=== PATIENT | male | born 1970 | race Two or more races ===

== ENCOUNTER 2016-11-13 05:24 | Day surgery (SDC) | payer OTHER ==
[2016-11-13] MEDS ORDERED: LIDOCAINE 1% 5 ML SDV ONE (05:42)
[2016-11-13] MEDS ORDERED: ceFAZolin 2 GM/DEXTROSE 100 ML IV ONE (06:00)
[2016-11-13] MEDS ORDERED: BUPIVACAINE 0.5% 30 ML SDV ONE (07:03)
[2016-11-13] MEDS ORDERED: PROPOFOL/EMULSION 500 MG/50 ML BOTTLE IV ONE (07:30)
[2016-11-13] MEDS ORDERED: MIDAZOLAM 2 MG/2 ML VIAL ONE (07:31)
[2016-11-13] MEDS ORDERED: fentaNYL 250 MCG/5 ML INJ ONE (07:35)
[2016-11-13] MEDS ORDERED: SKIN ADHESIVE (DERMABOND) 1 EACH TP ONE (08:46)
[2016-11-13] MEDS ORDERED: KETOROLAC 30 MG/1 ML SDV ONE (09:01)
[2016-11-13] MEDS ORDERED: DEXAMETHASONE 4 MG/ML VIAL ONE (09:01)
[2016-11-13] MEDS ORDERED: ONDANSETRON 4 MG/2 ML VIAL ONE (09:01)
[2016-11-13] MEDS ORDERED: SUGAMMADEX SODIUM 200 MG/2 ML VIAL IVP ONE (09:01)
[2016-11-13] MEDS ORDERED: fentaNYL 100 MCG/2 ML INJ ONE (09:40)
--- NOTE | 2016-11-13 11:40 | GOP ---
[f rep st] OPERATIVE REPORT DATE OF OPERATION: 11/13/2016 SURGEON: Kimi Romero MD TROMMEL TENDER: Jacklny Rojo PA-C ANESTHESIA: General. ANESTHESIOLOGIST: Debra Chavis MD PREOPERATIVE DIAGNOSIS: Left femoral hernia. POSTOPERATIVE DIAGNOSIS: Left femoral hernia. PROCEDURE PERFORMED: Laparoscopic left femoral hernia repair with mesh and exploration of right side . FINDINGS: Left femoral hernia. No hernia on right side. SPECIMENS: None. ESTIMATED BLOOD LOSS: 5 cc. INDICATIONS: The patient is a 46-year-old man who had left lower quadrant pain that radiated to his groin, and ultrasound was performed which showed a left femoral hernia with Valsalva. DESCRIPTION OF PROCEDURE: The patient was brought into the operating room, placed supine on the tabl e, and general anesthesia was administered. His abdomen and groin were prepped and draped in the usu al sterile fashion. I infiltrated the area with 10 cc of 0.5% Marcaine prior to making incisions. I made an incision beneath his umbilicus. I dissected down through the subcutaneous tissues until I e ncountered the anterior rectus sheath. I divided this, I swept his rectus muscles laterally, and I i nserted the dissecting balloon-tip trocar directed toward the pubis. I performed hand insufflation w ith the camera in place. I then exchanged the dissecting balloon for the working balloon. He was pl aced in the Trendelenburg position. I placed a 5 mm suprapubic trocar and a 5 mm trocar in between t he first and second trocars. I continued my dissection to keep the inferior epigastric vessels anter ior. I swept the pubis clear of investing fascia and I developed a plane laterally. I identified t he cord and cord structures. There was no hernia sac. There was a lipoma of the cord which was redu barb. I then carefully dissected the fat around the femoral vessels and reduced this completely. The re was a small defect. I placed a piece of laparoscopic self-fixating ProGrip mesh to cover the dire ct, indirect, and femoral spaces. This was tacked to the pubic tubercle and anteriorly. Next, I exp lored the right side. No hernia was noted. The preperitoneal space was allowed to desufflate. The fascia at the 10 mm trocar site was closed with 0 Vicryl, skin closed with 4-0 Monocryl, Dermabond ap plied. He was awakened in the operating room, extubated, transferred to PACU in stable condition. /[id number]/MODL
== END 2016-11-13 11:00 | disposition home or self-care (01) ==
LOC: FSGY 05:24
PROVIDERS: ATTEND Surgery
PROC: 0YU64JZ Supplement Left Inguinal Region with Synthetic Substitute, Percutaneous Endoscopic Approach (ICD-10-PCS; principal; 2016-11-13 07:30)
DX: K41.40 Unilateral femoral hernia, with gangrene, not specified as recurrent (principal); B35.9 Dermatophytosis, unspecified; E66.9 Obesity, unspecified; Z68.32 Body mass index [BMI] 32.0-32.9, adult
CPT/HCPCS: 49650; C1727; C1781; J0690; J1100; J1885; J2250; J2405; J2704; J3010

== ENCOUNTER 2017-08-19 15:41 | Emergency (ER) | payer OTHER ==
[2017-08-19 16:01] VITALS: RESP 18
--- NOTE | 2017-08-19 16:09 | EDPHY ---
H & P Stated Complaint: bright bloody diarrhea for 3 days, today with LLQ abd pain Time Seen by Provider: 08/19/17 15:47 HPI/ROS: Chief Complaint: Blood in stool HPI: Healthy 47-year-old male presenting with 4 days of blood in his stool. Patient states that on Wednesday he had 2 bowel movements with yellowish loose stool that also was accompanied with some blood. Wednesday and Wednesday he had 2-3 bowel movements a day which were loose with just a very small amount of blood. Today he has had 2 bowel movements with again yellowish loose stool but has also been associated with blood. He is also having some left lower abdominal pain. He has had a history of blood in his stool in the past but has not had any testing done. Denies any fevers or chills. No profuse watery diarrhea. No lightheadedness or fainting. No nausea or vomiting. No dark black stools. He has not take any anticoagulation. ROS: 10 point Review of Systems is negative except as noted in the HPI. PMH: Denies Social History: No smoking, occasional alcohol, no recreational drug use Family History: non-contributory Physical Exam: Gen: Awake, Alert, No Distress HEENT: Nose: no rhinorrhea Eyes: PERRLA, EOMI Mouth: Moist mucosa Neck: Supple, no JVD Chest: nontender, lungs clear to auscultation Heart: S1, S2 normal, no murmur Abd: Soft, non-tender, no guarding Back: no CVA tenderness, no midline tenderness Rectal: No hemorrhoids, no masses, no fissures, no gross blood Ext: no edema, non-tender Skin: no rash Neuro: CN II-XII intact, Sensation grossly intact, Strength 5/5 in bilateral upper and lower extremities - Medical/Surgical History Hx Diabetes: No Other PMH: hernia repair - Social History Smoking Status: Former smoker Constitutional: Initial Vital Signs Heart Rate 80 08/19/17 15:59 Respiratory Rate 18 08/19/17 15:59 Blood Pressure 135/91 H 08/19/17 15:59 O2 Sat (%) 95 08/19/17 15:59 O2 Delivery Mode Room Air Allergies/Adverse Reactions: No Known Allergies Allergy (Verified 08/19/17 15:59) Home Medications: Medication Instructions Recorded NK [No Known Home Meds] 11/12/16 Medical Decision Making ED Course/Re-evaluation: 47-year-old male with several episodes of blood per rectum. He is not having profuse hematochezia. CBC is normal here. Vital signs are normal. Symptoms consistent with possible diverticulosis, hemorrhoids, fissure, mass. He has been instructed to follow up with his doctor and with Gastroenterology for colonoscopy. Return for worsening bleeding. - Data Points Laboratory Results: Laboratory Results 08/19/17 16:05 08/19/17 16:05 08/19/17 08/19/17 16:05 16:05 WBC 8.08 10^3/uL 10^3/uL (3.80-9.50) RBC 5.74 10^6/uL 10^6/uL (4.40-6.38) Hgb 16.7 g/dL g/dL (13.7-17.5) Hct 48.7 % % (40.0-51.0) MCV 84.8 fL fL (81.5-99.8) MCH 29.1 pg pg (27.9-34.1) MCHC 34.3 g/dL g/dL (32.4-36.7) RDW 12.5 % % (11.5-15.2) Plt Count 199 10^3/uL 10^3/uL (150-400) MPV 11.9 fL H fL (8.7-11.7) Neut % (Auto) 54.1 % % (39.3-74.2) Lymph % (Auto) 37.1 % % (15.0-45.0) [place] % (Auto) 6.9 % % (4.5-13.0) Eos % (Auto) 1.5 % % (0.6-7.6) Baso % (Auto) 0.2 % L % (0.3-1.7) Nucleat RBC Rel Count 0.0 % % (0.0-0.2) Absolute Neuts (auto) 4.36 10^3/uL 10^3/uL (1.70-6.50) Absolute Lymphs (auto) 3.00 10^3/uL 10^3/uL (1.00-3.00) Absolute Monos (auto) 0.56 10^3/uL 10^3/uL (0.30-0.80) Absolute Eos (auto) 0.12 10^3/uL 10^3/uL (0.03-0.40) Absolute Basos (auto) 0.02 10^3/uL 10^3/uL (0.02-0.10) Absolute Nucleated RBC 0.00 10^3/uL 10^3/uL (0-0.01) Immature Gran % 0.2 % % (0.0-1.1) Immature Gran # 0.02 10^3/uL 10^3/uL (0.00-0.10) Sodium 140 mEq/L mEq/L (134-144) Potassium 4.1 mEq/L mEq/L (3.5-5.2) Chloride 104 mEq/L mEq/L (97-110) Carbon Dioxide 24 mEq/l mEq/l (22-31) Anion Gap 12 mEq/L mEq/L (8-16) BUN 19 mg/dL mg/dL (7-23) Creatinine 0.6 mg/dL L mg/dL (0.7-1.3) Estimated GFR > 60 Glucose 100 mg/dL mg/dL (70-100) Calcium 9.3 mg/dL mg/dL (8.5-10.4) Departure - Departure Disposition: Home, Routine, Self-Care Clinical Impression: Rectal bleeding Condition: Good Instructions: Rectal Bleeding (ED) Additional Instructions: Follow up with Dr. Sunshine, gastroenterology, in 3-4 days to arrange for an outpatient colonoscopy. Follow up with primary care physician in 3-4 days. Return to the emergency department for multiple episodes of large amounts of rectal bleeding, lightheadedness, worsening abdominal pain, fainting, or any other concerns. Referrals: Nakul Rapp DO [Primary Care Provider] - As per Instructions Timothy Sunshine MD [Medical Doctor] - As per Instructions
[2017-08-19 16:17] LABS: PLATELET COUNT 199 10^3/uL (150-400)
[2017-08-19 16:30] VITALS: TEMP 98.6
[2017-08-19 17:08] VITALS: BP 106/63; PULSE 72; O2SAT 93
== END 2017-08-19 17:13 | disposition home or self-care (01) ==
LOC: CED 15:41
DX: K62.5 Hemorrhage of anus and rectum (principal); Z87.891 Personal history of nicotine dependence
CPT/HCPCS: 80048-PO; 85025-PO